=== PATIENT | male | born 1995 | race Caucasian/White ===

== ENCOUNTER 2016-08-24 12:04 | Emergency (ER) | payer OTHER ==
[2016-08-24 12:13] VITALS: RESP 18; TEMP 98.4
[2016-08-24] MEDS ORDERED: IBUPROFEN 600 MG TAB PO ONE (12:21)
[2016-08-24] MEDS ORDERED: OXYCODONE/APAP 5/325 TAB PO ONE ×2 (12:21→13:43)
--- NOTE | 2016-08-24 13:57 | DX ---
Right humerus, 2 views. History: Pain after fall. Findings: Normal mineralization and alignment. No evidence for acute fracture or dislocation. No sign ificant joint narrowing, periarticular erosion, periarticular spurring. Impression: Normal radiograph right humerus.
--- NOTE | 2016-08-24 14:01 | DX ---
Right Elbow, Three Views History: Pain after a fall. Findings: Normal mineralization and alignment. No evidence for acute fracture or dislocation. No sign ificant joint narrowing, periarticular erosion, periarticular spurring. A 2-mm calcification is seen dorsal to the proximal diaphysis of the ulna. No other evidence for soft tissue calcification or radi opaque debris. No evidence for joint effusion. Impression: Possible small soft tissue calcification or radiopaque debris dorsal to the proximal ulna r diaphysis. Otherwise unremarkable.
--- NOTE | 2016-08-24 14:42 | EDPHY ---
H & P Stated Complaint: Injury to R elbow/arm rock climbing Time Seen by Provider: 08/24/16 12:14 HPI/ROS: Chief complaint: Right arm injury History of present illness: This is a 21-year-old male who presents to the emergency department for a right arm injury. Just prior to arrival he was hiking up to go rock climbing when he slipped and fell onto his right arm. He sustained abrasions to the arm. He states he also has pain around his right elbow. It makes it difficult to move the elbow. He denies other associated signs or symptoms including no abnormal coolness or paresthesias in the arm. No report of trauma to other parts of the body. His tetanus is up-to-date. - Personal History Current Tetanus Diphtheria and Acellular Pertussis (TDAP): Yes - Medical/Surgical History Other PMH: healthy - Social History Smoking Status: Current every day smoker - Physical Exam Exam: General: Alert, nontoxic Skin: Multiple abrasions to the forearm, no deep or repairable lesions noted Musculoskeletal: Diffuse tenderness to the elbow and distal humeral region. He has difficulty moving the elbow secondary to pain. He can move the digits in the right hand, the right wrist and right shoulder well. Vascular: Radial pulses 2+. Capillary refill brisk in the hand. Neurologic: Sensation intact in the right hand. Constitutional: Initial Vital Signs Temperature (C) 36.9 C 08/24/16 12:10 Heart Rate 87 08/24/16 12:10 Respiratory Rate 18 08/24/16 12:10 Blood Pressure 156/88 H 08/24/16 12:10 O2 Sat (%) 99 08/24/16 12:10 O2 Delivery Mode Room Air Allergies/Adverse Reactions: No Known Allergies Allergy (Unverified 08/24/16 12:12) Home Medications: Medication Instructions Recorded Hydrocodone/APAP 5/325 [Kent 1 tab PO Q4 #6 tab 08/24/16 5/325 (*)] Medical Decision Making - Diagnostics Imaging: X-ray series of the right elbow and right humerus shows questionable calcification or foreign body in tissue otherwise unremarkable Procedures: Patient's wounds were cleaned and dressed Patient placed in a sling ED Course/Re-evaluation: Patient seen under the supervision of my secondary supervising physician Dr. Mor Alfaro. Patient presents to the emergency department for a right arm injury. Right arm is neurovascularly intact. X-rays negative for fracture, questionable foreign body versus calcification, the wounds have been thoroughly cleaned and dressed. Patient is placed in a sling. He is referred to Orthopedics for further evaluation and care. Strict return precautions are given. Patient voiced understanding and agreement with plan. - Data Points Medications Given: Discontinued Medications Ibuprofen (Motrin) 600 mg PO EDNOW ONE Stop: 08/24/16 12:22 Last Admin: 08/24/16 12:28 Dose: 600 mg Oxycodone/Acetaminophen (Percocet 5/325) 1 tab PO EDNOW ONE Stop: 08/24/16 12:22 Last Admin: 08/24/16 12:29 Dose: 1 tab Oxycodone/Acetaminophen (Percocet 5/325) 1 tab PO EDNOW ONE Stop: 08/24/16 13:44 Last Admin: 08/24/16 13:47 Dose: 1 tab Departure - Departure Disposition: Home, Routine, Self-Care Clinical Impression: Arm sprain Condition: Good Instructions: Musculoskeletal Pain (ED) Additional Instructions: Follow-up with orthopedics this week for continued evaluation and care In regards to pain control see the following: Use ibuprofen 600 mg 3 times a day for the next 2-3 days for pain In addition You have been prescribed Kent for pain. Kent contains Tylenol, do not take extra Tylenol/acetaminophen/Apap with it. It is sedating. If symptoms worsen or new symptoms develop return to the emergency department for recheck Referrals: [place],. [Primary Care Provider] - As per Instructions Christiano Berger MD [Medical Doctor] - As per Instructions Prescriptions: Hydrocodone/APAP 5/325 [Kent 5/325 (*)] 1 tab PO Q4 #6 tab
[2016-08-24 15:07] VITALS: BP 146/90; PULSE 60; O2SAT 96
== END 2016-08-24 15:06 | disposition home or self-care (01) ==
DX: S43.401A Unspecified sprain of right shoulder joint, initial encounter (principal); F17.200 Nicotine dependence, unspecified, uncomplicated; S50.819A Abrasion of unspecified forearm, initial encounter; W01.0XXA Fall on same level from slipping, tripping and stumbling without subsequent striking against object, initial encounter; Y99.8 Other external cause status; Y93.31 Activity, mountain climbing, rock climbing and wall climbing
CPT/HCPCS: A4565